=== PATIENT | female | born 1980 | race Caucasian/White ===

== ENCOUNTER 2016-11-27 11:59 | Day surgery (SDC) | payer OTHER ==
[~2016-11-27] VITALS: Ht 149.9 cm; Wt 65.5 kg
[~2016-11-27 11:59] MED LIST: ROCURONIUM 50 MG INJ ONE
[2016-11-27 12:22] VITALS: Ht 149.9 cm; Wt 65.5 kg
[2016-11-27] MEDS ORDERED: ACETAMINOPHEN 325 MG TAB PO STA (13:44)
--- NOTE | 2016-11-27 15:02 | RADRPT ---
PROCEDURE: OBSTETRICAL ULTRASOUND WITH ENDOVAGINAL IMAGES CLINICAL INDICATION: Vaginal bleeding, pelvic pain TECHNIQUE: Multiple sonographic images of the pelvis were obtained utilizing a transabdominal and endovaginal technique. The images were reviewed on a PACS workstation. COMPARISON: None. LMP: 09/28/2016 Gestational age by LMP: 8 weeks, 4 days FINDINGS: The uterus measures 8.3 x 4.6 x 7.8 cm. There is heterogeneity and thickening of the endometrium wh ich measures up to 16 mm. No abnormal vascularity is identified in the endometrium. Several sub-corazon timeter Nabothian cysts are identified. The right ovary is not visualized. The left ovary measures 2.8 x 2.0 x 2.0 cm. There is normal vascu lar flow in the left ovary. No significant ovarian lesions are seen. There is mild free fluid in the left adnexa. IMPRESSION: There is heterogeneity and thickening of the endometrium to 16 mm without evidence of an intrauterin e . Findings may be due to an early intrauterine although an ectopic and early demise cannot be entirely excluded. Short-term follow-up ultrasound and serial Bet a HCG measurements are recommended for further evaluation. No abnormal vascularity is identified in the endometrium to suggest retained products of conception . Mild free fluid is identified in the left adnexa without evidence of a significant left ovarian lesi on. Nonvisualization of the right ovary. RPTAT: EE Physician Jamila Date Time Electronically viewed and signed by Physician Jamila on 11/27/2016 15:02 /
[2016-11-27 15:17] LABS: ADD UMIC YES; UR ASCORBIC ACID NEGATIVE (NEGATIVE); UR BILIRUBIN (Dip) NEGATIVE (NEGATIVE); UR BLOOD (Dip) 2+ mg/dL (NEGATIVE); UR CLARITY SLIGHTLY CLOUDY (CLEAR); UR COLOR YELLOW (YELLOW); UR GLUCOSE (Dip) NEGATIVE (NEGATIVE); UR KETONES (Dip) NEGATIVE (NEGATIVE); UR LEUKOCYTE ESTERASE (Dip) NEGATIVE Leu/ul (NEGATIVE); UR MUCUS FEW /HPF (NONE SEEN); UR NITRITE (Dip) NEGATIVE (NEGATIVE); UR RBC 1 /HPF (0-5); UR SPECIFIC GRAVITY (Dip) 1.015 (1.003-1.030); UR SQUAMOUS EPITHELIAL CELL FEW /HPF (FEW); UR TOTAL PROTEIN (Dip) 1+ mg/dl (NEGATIVE); UR UROBILINOGEN (Dip) NEGATIVE (NEGATIVE)
[2016-11-27 15:36] LABS: BASOPHILS % 0.2 % (0.0-2.0); EOSINOPHILS % 0.3 % (0.0-7.0); HEMATOCRIT 37.2 % (42.0-52.0); HEMOGLOBIN 12.9 g/dl (14.0-18.0); LYMPHOCYTES # 1.3 10^3/ul (0.8-2.9); LYMPHOCYTES % 11.6 % (15.0-51.0); MEAN CORPUSCULAR HEMOGLOBIN 30.6 pg (29.0-33.0); MEAN CORPUSCULAR HGB CONC 34.7 g/dl (32.0-37.0); MEAN CORPUSCULAR VOLUME 88.2 fl (82.0-101.0); MONOCYTE # 0.5 10^3/ul (0.3-0.9); MONOCYTES % 3.9 % (0.0-11.0); NEUTROPHIL # 9.5 10^3/ul (1.6-7.5); NEUTROPHILS % 83.5 % (39.0-77.0); PLATELET COUNT 224 10^3/UL (140-415); RED BLOOD COUNT 4.22 10^6/ul (4.70-6.10); RED CELL DISTRIBUTION WIDTH 13.1 % (11.5-14.5); WHITE BLOOD COUNT 11.4 10^3/ul (4.8-10.8)
[2016-11-27 15:53] LABS: INR 0.96; PROTIME 12.8 Sec (12.2-14.2)
[2016-11-27 15:54] LABS: PARTIAL THROMBOPLASTIN TIME 23.8 Sec (25.0-35.0)
[2016-11-27 15:57] LABS: ALBUMIN 4.5 g/dl (3.3-4.9); ALBUMIN/GLOBULIN RATIO 1.32; BILIRUBIN,INDIRECT 0.6 mg/dl (0-1.1); BILIRUBIN,TOTAL 0.6 mg/dl (0.2-1.3); CALCIUM 9.3 mg/dl (8.4-10.2); CREATININE 0.61 mg/dl (0.61-1.24); POTASSIUM 4.3 mmol/L (3.5-5.1); TOTAL PROTEIN 7.9 g/dl (6.1-8.1)
[2016-11-27 16:46] VITALS: TEMP 98.5
[2016-11-27] MEDS ORDERED: ONDANSETRON (ODT) 4 MG TAB ODT STA (17:20)
[2016-11-27] MEDS ORDERED: HYDROCODONE/APAP (5/325) TAB PO ONE (17:30)
--- NOTE | 2016-11-27 18:22 | CONS ---
Date/Time of Note Date/Time of Note DATE: 11/27/16 TIME: 18:22 Assessment/Plan Assessment/Plan Chief Complaint/Hosp Course Abdominal pain HCG 14,239. No clear evidence of IUP and ultrasound Free fluid in the pelvis. Tenderness in adnexa Cannot rule out ectopic Discussed with the patient regarding the diagnosis of nonviable . Differential diagnosis would be incomplete miscarriage versus ectopic . Cannot rule out right ectopic after reviewing imaging as well as pelvic examination finding Currently patient hemodynamically stable Options of D&C and diagnostic laparoscopy if there is no villi found in D&C, with possible salpingostomy versus salpingectomy, possible open discussed with the patient Risk and benefit of procedure including risk of infection, bleeding damage to surrounding structures including bowel and bladder and risk of blood transfusion including but not limited to blood borne infection including HIV, hepatitis B and C and transfusion reaction discussed with the patient in detail and informed consent was obtained Patient desires to proceed with D&C and possible laparoscopy Understands possibility of conversion to open procedure Explained if ectopic tissue could not be identified and laparoscopy she may need to be observed in-house with treatment with methotrexate and serial HCG Patient understand follow-up after the procedure would be close monitoring of hCG if she has salpingostomy with her [facility] office as outpatient until hCG is negative. she verbalized understanding the risk of possibility of salpingectomy. Also understand risk of conversion to open procedure as well as risk of blood transfusion in case if necessary and she consents for blood transfusion as well. All questions were answered to the patient's best satisfaction We will keep the patient n.p.o. OR was notified Plan for above procedure at 10 PM per OR. Problems: Consultation Date/Type/Reason Admit Date/Time 11/27/2016 Type of Consultation: [facility] [facility] Reason for Consultation R/o Ectopic Hx of Present Illness 36 years old with amenorrhea for 8 weeks and 4 days presented to ED with complaint of epigastric pain with radiation to the lower abdomen and to the rectum area since this morning. Patient also reports dizziness and sweating. Had recently an exam for annual visit at her [facility] office, Dr. Kiko Haddad and had pap . was given an appt for first OB visit for Dec 02. Patient reports had a positive test in nov 09. Never had a ultrasound for confirmation of IUP. Patient had an ultrasound as well as blood work today in the emergency room that showed beta-hCG 14,239 and ultrasound with no evidence of IUP with mild free fluid in the left adnexa and normal left ovary with nonvisualization of the right ovary. Patient denies any vaginal bleeding. LMP September 28, 2016. Had been trying for since April. Denies any prior history of infertility. Had been using condoms for control. Constitutional: other (Reports significant abdominal pain as well as dizziness and sweating) Eyes: no complaints ENT: no complaints Respiratory: no complaints Cardiovascular: no complaints Gastrointestinal: nausea, pain Musculoskeletal: no complaints Skin: no complaints Neurologic: no complaints Endocrine: no complaints Lymphatic: no complaints Psychological: no complaints Immunologic: no complaints Past Medical History Past medical history: 1. Hypercholesterolemia 2. Hypothyroidism, on Synthroid well-controlled 3. History of pituitary adenoma, nose and MRI after she had 4 headache. Denies any galactorrhea Past surgical history: 1. Status post appendectomy in 1999 [employer] history LMP September 28, 2016 Cycles had been fairly regular once a month last about 3 days. She also reports dysmenorrhea and rectal pain during menstruation Family History Significant Family History: hypertension (Maternal grandmother of hypertension, hypertension in mother and father) Social History Denies smoking. Used to drink alcohol socially. Stopped 2 years ago. Denies ever using any drugs Alcohol Use: none Exam/Review of Systems Vital Signs Vitals Vital Signs Date Time Temp Pulse Resp B/P Pulse Ox O2 Delivery O2 Flow Rate FiO2 11/27/16 16:46 98.5 78 20 112/58 99 Room Air Exam Constitutional: alert, distress, oriented, other (Is in moderate distress) Psych: no complaints Head: normocephalic Eyes: nl conjunctiva ENMT: nl external ears & nose Neck: supple Respiratory: clear to auscultation Cardiovascular: nl pulses, regular rate and rhythm Gastrointestinal: other (Guarding in both lower abdomen more in the right side. 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 No vaginal lesion no blood in the vault Bimanual examination. Fullness and tenderness in cul-de-sac as well as right lower abdomen and the right adnexa Left adnexa less tender in the palpation Exam is limited due to patient's difficulty tolerating pelvic examination due to discomfort and pain Results Result Diagram: 11/27/16 1525 11/27/16 1525 Results 24 hrs Laboratory Tests Test 11/27/16 14:50 11/27/16 15:25 Urine Color YELLOW Urine Clarity SLIGHTLY CLOUDY A Urine pH 7.0 Urine Specific [place] 1.015 Urine Ketones NEGATIVE Urine Nitrite NEGATIVE Urine Bilirubin NEGATIVE Urine Urobilinogen NEGATIVE Urine Leukocyte Esterase NEGATIVE Urine Microscopic RBC 1 Urine Microscopic WBC 5 Urine Squamous Epithelial Cells FEW Urine Mucus FEW A Urine Hemoglobin 2+ H Urine Glucose NEGATIVE Urine Total Protein 1+ H White Blood Count 11.4 H Red Blood Count 4.22 L Hemoglobin 12.9 L Hematocrit 37.2 L Mean Corpuscular Volume 88.2 Mean Corpuscular Hemoglobin 30.6 Mean Corpuscular Hemoglobin Concent 34.7 Red Cell Distribution Width 13.1 Platelet Count 224 Mean Platelet Volume 11.0 H Neutrophils % 83.5 H Lymphocytes % 11.6 L Monocytes % 3.9 Eosinophils % 0.3 Basophils % 0.2 Nucleated Red Blood Cells % 0.0 Neutrophils # 9.5 H Lymphocytes # 1.3 Monocytes # 0.5 Eosinophils # 0.0 Basophils # 0.0 Nucleated Red Blood Cells # 0.0 Prothrombin Time 12.8 Prothrombin Time Ratio 1.0 INR International Normalized Ratio 0.96 Activated Partial Thromboplast Time 23.8 L Sodium Level 140 Potassium Level 4.3 Chloride Level 106 Carbon Dioxide Level 23 Anion Gap 15 Blood Urea Nitrogen 11 Creatinine 0.61 Glucose Level 102 Calcium Level 9.3 Total Bilirubin 0.6 Direct Bilirubin 0.00 Indirect Bilirubin 0.6 Aspartate Amino Transf (AST/SGOT) 25 Alanine Aminotransferase (ALT/SGPT) 42 Alkaline Phosphatase 82 Total Protein 7.9 Albumin 4.5 Globulin 3.40 H Albumin/Globulin Ratio 1.32 Beta HCG, Quantitative 81179.0 Imaging Free Text/Dictation ROCEDURE: OBSTETRICAL ULTRASOUND WITH ENDOVAGINAL IMAGES CLINICAL INDICATION: Vaginal bleeding, pelvic pain TECHNIQUE: Multiple sonographic images of the pelvis were obtained utilizing a transabdominal and endovaginal technique. The images were reviewed on a PACS workstation. COMPARISON: None. LMP: 09/28/2016 Gestational age by LMP: 8 weeks, 4 days FINDINGS: The uterus measures 8.3 x 4.6 x 7.8 cm. There is heterogeneity and thickening of the endometrium which measures up to 16 mm. No abnormal vascularity is identified in the endometrium. Several sub-centimeter Nabothian cysts are identified. The right ovary is not visualized. The left ovary measures 2.8 x 2.0 x 2.0 cm. There is normal vascular flow in the left ovary. No significant ovarian lesions are seen. There is mild free fluid in the left adnexa. IMPRESSION: There is heterogeneity and thickening of the endometrium to 16 mm without evidence of an intrauterine . Findings may be due to an early intrauterine although an ectopic and early demise cannot be entirely excluded. Short-term follow-up ultrasound and serial Beta HCG measurements are recommended for further evaluation. No abnormal vascularity is identified in the endometrium to suggest retained products of conception. Mild free fluid is identified in the left adnexa without evidence of a significant left ovarian lesion. Nonvisualization of the right ovary. RPTAT: EE Medications Medications Current Medications Lactated Ringer's 1,000 ml @ 125 mls/hr Q8H IV ; Start 11/27/16 at 18:16; Status UNV Cefazolin Sodium/ Dextrose (Ancef 2 Gm/50 ml (Pmx)) 50 ml @ 100 mls/hr PRE-OP ONCE IVPB ; Start 11/27/16 at 18:30; Stop 11/27/16 at 18:59; Status UNV GEM HERRON MD Nov 27, 2016 18:22
[2016-11-27] MEDS ORDERED: CEFAZOLIN 2 GM/50 ML (PMX) 50 ML IVPB ONE (18:30)
--- NOTE | 2016-11-27 19:00 | HP ---
Date/Time of Note Date/Time of Note DATE: 11/27/16 TIME: 18:59 Assessment/Plan VTE Prophylaxis VTE Prophylaxis Intervention: ambulation, SCD's Assessment/Plan Chief Complaint/Hosp Course Abdominal pain HCG 14,239. No clear evidence of IUP and ultrasound Free fluid in the pelvis. Tenderness in adnexa Cannot rule out ectopic Discussed with the patient regarding the diagnosis of nonviable . Differential diagnosis would be incomplete miscarriage versus ectopic . Cannot rule out right ectopic after reviewing imaging as well as pelvic examination finding Currently patient hemodynamically stable Options of D&C and diagnostic laparoscopy if there is no villi found in D&C, with possible salpingostomy versus salpingectomy, possible open discussed with the patient Risk and benefit of procedure including risk of infection, bleeding damage to surrounding structures including bowel and bladder and risk of blood transfusion including but not limited to blood borne infection including HIV, hepatitis B and C and transfusion reaction discussed with the patient in detail and informed consent was obtained Patient desires to proceed with D&C and possible laparoscopy Understands possibility of conversion to open procedure Explained if ectopic tissue could not be identified and laparoscopy she may need to be observed in-house with treatment with methotrexate and serial HCG Patient understand follow-up after the procedure would be close monitoring of hCG if she has salpingostomy with her [facility]CH[facility] office as outpatient until hCG is negative. she verbalized understanding the risk of possibility of salpingectomy. Also understand risk of conversion to open procedure as well as risk of blood transfusion in case if necessary and she consents for blood transfusion as well. All questions were answered to the patient's best satisfaction We will keep the patient n.p.o. OR was notified Plan for above procedure at 10 PM per OR. Problems: HPI/ROS Admit Date/Time Admit Date/Time 11/27/2016 Hx of Present Illness Patient Name: Remedios Goss Unit Number: [id number] Date of : 1980 Patient Status: Registered Emergency Room Attending Doctor: Yohana Avery Date/Time of Note Date/Time of Note Date/Time of Note DATE: 11/27/16 TIME: 18:22 Assessment/Plan Assessment/Plan Assessment/Plan Chief Complaint/Hosp Course Abdominal pain HCG 14,239. No clear evidence of IUP and ultrasound Free fluid in the pelvis. Tenderness in adnexa Cannot rule out ectopic Discussed with the patient regarding the diagnosis of nonviable . Differential diagnosis would be incomplete miscarriage versus ectopic . Cannot rule out right ectopic after reviewing imaging as well as pelvic examination finding Currently patient hemodynamically stable Options of D&C and diagnostic laparoscopy if there is no villi found in D&C, with possible salpingostomy versus salpingectomy, possible open discussed with the patient Risk and benefit of procedure including risk of infection, bleeding damage to surrounding structures including bowel and bladder and risk of blood transfusion including but not limited to blood borne infection including HIV, hepatitis B and C and transfusion reaction discussed with the patient in detail and informed consent was obtained Patient desires to proceed with D&C and possible laparoscopy Understands possibility of conversion to open procedure Explained if ectopic tissue could not be identified and laparoscopy she may need to be observed in-house with treatment with methotrexate and serial HCG Patient understand follow-up after the procedure would be close monitoring of hCG if she has salpingostomy with her [facility] office as outpatient until hCG is negative. she verbalized understanding the risk of possibility of salpingectomy. Also understand risk of conversion to open procedure as well as risk of blood transfusion in case if necessary and she consents for blood transfusion as well. All questions were answered to the patient's best satisfaction We will keep the patient n.p.o. OR was notified Plan for above procedure at 10 PM per OR. Problems: Initial Consultation HPI Consultation Date/Type/Reason Admit Date/Time 11/27/2016 Type of Consultation: [facility] [employer] Reason for Consultation R/o Ectopic Hx of Present Illness 36 years old with amenorrhea for 8 weeks and 4 days presented to ED with complaint of epigastric pain with radiation to the lower abdomen and to the rectum area since this morning. Patient also reports dizziness and sweating. Had recently an exam for annual visit at her [facility] office, Dr. Kiko Haddad and had pap . was given an appt for first OB visit for Dec 02. Patient reports had a positive test in nov 09. Never had a ultrasound for confirmation of IUP. Patient had an ultrasound as well as blood work today in the emergency room that showed beta-hCG 14,239 and ultrasound with no evidence of IUP with mild free fluid in the left adnexa and normal left ovary with nonvisualization of the right ovary. Patient denies any vaginal bleeding. LMP September 28, 2016. Had been trying for since April. Denies any prior history of infertility. Had been using condoms for control. Constitutional: other (Reports significant abdominal pain as well as dizziness and sweating) Eyes: no complaints ENT: no complaints Respiratory: no complaints Cardiovascular: no complaints Gastrointestinal: nausea, pain Musculoskeletal: no complaints Skin: no complaints Neurologic: no complaints Endocrine: no complaints Lymphatic: no complaints Psychological: no complaints Immunologic: no complaints Initial Consultation Hx Past Medical History Past medical history: 1. Hypercholesterolemia 2. Hypothyroidism, on Synthroid well-controlled 3. History of pituitary adenoma, nose and MRI after she had 4 headache. Denies any galactorrhea Past surgical history: 1. Status post appendectomy in 1999 [employer] history LMP September 28, 2016 Cycles had been fairly regular once a month last about 3 days. She also reports dysmenorrhea and rectal pain during menstruation Family History Significant Family History: hypertension (Maternal grandmother of hypertension, hypertension in mother and father) Social History Denies smoking. Used to drink alcohol socially. Stopped 2 years ago. Denies ever using any drugs Alcohol Use: none Exam/Review of Systems Exam/Review of Systems Vital Signs Vitals Vital Signs Date Time Temp Pulse Resp B/P Pulse Ox O2 Delivery O2 Flow Rate FiO2 11/27/16 16:46 98.5 78 20 112/58 99 Room Air Exam Constitutional: alert, distress, oriented, other (Is in moderate distress) Psych: no complaints Head: normocephalic Eyes: nl conjunctiva ENMT: nl external ears & nose Neck: supple Respiratory: clear to auscultation Cardiovascular: nl pulses, regular rate and rhythm Gastrointestinal: other (Guarding in both lower abdomen more in the right side. 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 No vaginal lesion no blood in the vault Bimanual examination. Fullness and tenderness in cul-de-sac as well as right lower abdomen and the right adnexa Left adnexa less tender in the palpation Exam is limited due to patient's difficulty tolerating pelvic examination due to discomfort and pain Results Result Diagram: 11/27/16 1525 11/27/16 1525 Results 24 hrs Laboratory Tests Test 11/27/16 14:50 11/27/16 15:25 Urine Color YELLOW Urine Clarity SLIGHTLY CLOUDY A Urine pH 7.0 Urine Specific [place] 1.015 Urine Ketones NEGATIVE Urine Nitrite NEGATIVE Urine Bilirubin NEGATIVE Urine Urobilinogen NEGATIVE Urine Leukocyte Esterase NEGATIVE Urine Microscopic RBC 1 Urine Microscopic WBC 5 Urine Squamous Epithelial Cells FEW Urine Mucus FEW A Urine Hemoglobin 2+ H Urine Glucose NEGATIVE Urine Total Protein 1+ H White Blood Count 11.4 H Red Blood Count 4.22 L Hemoglobin 12.9 L Hematocrit 37.2 L Mean Corpuscular Volume 88.2 Mean Corpuscular Hemoglobin 30.6 Mean Corpuscular Hemoglobin Concent 34.7 Red Cell Distribution Width 13.1 Platelet Count 224 Mean Platelet Volume 11.0 H Neutrophils % 83.5 H Lymphocytes % 11.6 L Monocytes % 3.9 Eosinophils % 0.3 Basophils % 0.2 Nucleated Red Blood Cells % 0.0 Neutrophils # 9.5 H Lymphocytes # 1.3 Monocytes # 0.5 Eosinophils # 0.0 Basophils # 0.0 Nucleated Red Blood Cells # 0.0 Prothrombin Time 12.8 Prothrombin Time Ratio 1.0 INR International Normalized Ratio 0.96 Activated Partial Thromboplast Time 23.8 L Sodium Level 140 Potassium Level 4.3 Chloride Level 106 Carbon Dioxide Level 23 Anion Gap 15 Blood Urea Nitrogen 11 Creatinine 0.61 Glucose Level 102 Calcium Level 9.3 Total Bilirubin 0.6 Direct Bilirubin 0.00 Indirect Bilirubin 0.6 Aspartate Amino Transf (AST/SGOT) 25 Alanine Aminotransferase (ALT/SGPT) 42 Alkaline Phosphatase 82 Total Protein 7.9 Albumin 4.5 Globulin 3.40 H Albumin/Globulin Ratio 1.32 Beta HCG, Quantitative 58463.0 Imaging Free Text/Dictation ROCEDURE: OBSTETRICAL ULTRASOUND WITH ENDOVAGINAL IMAGES CLINICAL INDICATION: Vaginal bleeding, pelvic pain TECHNIQUE: Multiple sonographic images of the pelvis were obtained utilizing a transabdominal and endovaginal technique. The images were reviewed on a PACS workstation. COMPARISON: None. LMP: 09/28/2016 Gestational age by LMP: 8 weeks, 4 days FINDINGS: The uterus measures 8.3 x 4.6 x 7.8 cm. There is heterogeneity and thickening of the endometrium which measures up to 16 mm. No abnormal vascularity is identified in the endometrium. Several sub-centimeter Nabothian cysts are identified. The right ovary is not visualized. The left ovary measures 2.8 x 2.0 x 2.0 cm. There is normal vascular flow in the left ovary. No significant ovarian lesions are seen. There is mild free fluid in the left adnexa. IMPRESSION: There is heterogeneity and thickening of the endometrium to 16 mm without evidence of an intrauterine . Findings may be due to an early intrauterine although an ectopic and early demise cannot be entirely excluded. Short-term follow-up ultrasound and serial Beta HCG measurements are recommended for further evaluation. No abnormal vascularity is identified in the endometrium to suggest retained products of conception. Mild free fluid is identified in the left adnexa without evidence of a significant left ovarian lesion. Nonvisualization of the right ovary. RPTAT: EE Medications Medications Current Medications Lactated Ringer's 1,000 ml @ 125 mls/hr Q8H IV ; Start 11/27/16 at 18:16; Status UNV Cefazolin Sodium/ Dextrose (Ancef 2 Gm/50 ml (Pmx)) 50 ml @ 100 mls/hr PRE-OP ONCE IVPB ; Start 11/27/16 at 18:30; Stop 11/27/16 at 18:59; Status UNV Copies To: Copies To: GEM HERRON MD Nov 27, 2016 18:22 ROS Eyes: no complaints ENT: no complaints Respiratory: no complaints Cardiovascular: no complaints Gastrointestinal: nausea, pain Musculoskeletal: no complaints Skin: no complaints Neurologic: no complaints Lymphatic: no complaints Psychological: no complaints Immunologic: no complaints PMH/Family/Social Social History Alcohol Use: none Exam/Review of Systems Vital Signs Vitals Vital Signs Date Time Temp Pulse Resp B/P Pulse Ox O2 Delivery O2 Flow Rate FiO2 11/27/16 16:46 98.5 78 20 112/58 99 Room Air Labs Result Diagram: 11/27/16 1525 11/27/16 1525 Medications Medications Current Medications Lactated Ringer's 1,000 ml @ 125 mls/hr Q8H IV ; Start 11/27/16 at 18:16 Cefazolin Sodium/ Dextrose (Ancef 2 Gm/50 ml (Pmx)) 50 ml @ 100 mls/hr PRE-OP ONCE IVPB ; Start 11/27/16 at 18:30; Stop 11/27/16 at 18:59 GEM HERRON MD Nov 27, 2016 19:00
[2016-11-27] MEDS: LACTATED RINGER'S 1,000 ML IV SCH (19:04)
[2016-11-27] MEDS ORDERED: VASOPRESSIN 20 UNITS INJ ONE (20:15)
[2016-11-27] MEDS ORDERED: MIDAZOLAM 1 MG/ML 2 ML INJ ONE (21:59)
[2016-11-27] MEDS ORDERED: LIDOCAINE 1% (MDV) 20 ML INJ ONE (21:59)
[2016-11-27] MEDS ORDERED: SUCCINYLCHOLINE CHLORIDE 100 MG/5 ML SYG IV ONE (21:59)
[2016-11-27] MEDS ORDERED: PROPOFOL 20 ML ONE (21:59)
[2016-11-27] MEDS ORDERED: CEFAZOLIN 1 GM INJ ONE (22:16)
[2016-11-27] MEDS ORDERED: FAMOTIDINE 20 MG INJ ONE (22:22)
[2016-11-27] MEDS ORDERED: ONDANSETRON 4 MG INJ ONE (22:22)
[2016-11-27] MEDS ORDERED: DEXAMETHASONE 4 MG/ML 1 ML INJ ONE (22:22)
[2016-11-27] MEDS ORDERED: BUPIVACAINE 0.25% (MPF) 30 ML INJ ONE (22:38)
[2016-11-27] MEDS ORDERED: PHENYLephrine (100 MCG/ML) 5ML SYG ONE (22:42)
[2016-11-27] MEDS ORDERED: ROPIVACAINE 0.2% 20 ML VIAL ONE (23:44)
[2016-11-27] MEDS ORDERED: SUGAMMADEX SODIUM 200 MG/2 ML VIAL IV ONE (23:57)
[2016-11-28] VITALS (23 sets, daily range): BP systolic 93–120; BP diastolic 44–67; PULSE 86–105; RESP 14–30
[2016-11-28] MEDS ORDERED: PHENYLephrine (100 MCG/ML) 5ML SYG ONE (00:01)
[2016-11-28] MEDS ORDERED: MEPERIDINE 25 MG INJ ONE (00:19)
[2016-11-28] MEDS ORDERED: ONDANSETRON 4 MG INJ ONE (00:20)
--- NOTE | 2016-11-28 00:27 | OPR ---
Date/Time of Note Date/Time of Note DATE: 11/28/16 TIME: 00:12 Operative Report Procedure Date: Nov 27, 2016 Preoperative Diagnosis 1-. Ectopic Postoperative Diagnosis Right ruptured tubal Hemoperitoneum Operation Performed 1. Dilatation and curettage 2. Diagnostic laparoscopy 3. Laparoscopic right salpingectomy 4. Drainage of intraperitoneal blood and blood clot Surgeon see signature line Clinical Trials Data Coordinator: GEM HERRON MD mechanic's assistant: WEN SOSA M.D. Anesthesia Type: general Anesthesiologist: ALEX GARDINER DO Tourniquet Time: 40 Transfusion Required: no Specimens Right tube Grafts/Implants: none Complications: no Pt Condition Post Procedure: stable Disposition: PACU Indications Abdominal pain Ectopic Suspicion for aborting versus ruptured ectopic Operative\Procedure Findings Right ruptured ectopic Hameoperitoneum 500 cc, Procedure Description Ms. Remedios Goss is a 36-year-old who presented to emergency room with complaint of severe abdominal pain that required IV narcotic pain medication with a new episode of . Unknown location. She had amenorrhea for 8+ weeks. Never had confirmed IUP. Was noted to have empty uterus with some mild amount of free fluid in the pelvis In pelvic formal ultrasound her serum hCG was 14,000. patient was counseled regarding different options to rule out ectopic including diagnostic laparoscopy versus D&C first then proceeding with diagnostic and operative laparoscopy in case of non-identification of chorionic villi from the uterine cavity. She opted to proceed with D&C first and proceed with diagnostic laparoscopy if no villi vitals found in frozen section. After discussion with the patient about the risk and benefit of procedure including, risk of infection, bleeding, damage to adjacent structures including bowel and bladder and risk of blood transfusion including but not limited to blood borne infection including HIV, hepatitis B and C and transfusion reaction and risk of conversion to open procedure informed consent was obtained. Patient was then taken to the operating room and received a dose of Ancef. She was placed under general adequate anesthesia. Timeout procedure was completed and patient was identified correctly. Then first after prep and drape a weighted speculum was placed inside the vagina. Anterior lip of the cervix was grasped using tenaculum. Cervix was serially dilated using Hegar dilators until we could accommodate passage of sharp grade #3. Depth of the uterus was measured using a uterine sound was noted to be 9 cm. Then using sharp curette the entire uterine cavity and 360 was curette. Minimal amount of tissue obtained and was sent to frozen section. Intra-Op frozen section showed evidence of decidual without any evidence of chorionic villi. At this point first a HUMI manipulator was passed into the uterine cavity and its balloon was inflated enough to fix the manipulator. Then the tenaculum from anterior lip of the cervix was removed. Due to high level hCG and no IUP and high suspicious for ectopic decision was made to proceed with diagnostic laparoscopy. At this point after changing of gloves attention was turned to the abdomen where after injecting of 6 cc of quarter percent Marcaine and umbilicus first and 5 mm incision was made inside the umbilicus. Then using Veress needle was passed through them umbilicus incision after 2 snaps sounds and positive saline drop test and negative aspiration that confirmed correct intra-abdominal placement of the Veress needle insufflation started using CO2 gas. Opening pressure was noted to be 0. After insufflation of 3.2 L of CO2 gas and adequate distention of the abdomen while the patient was in the supine position using a 5 mm trocar from the umbilical incision that was passed through the incision to the abdominal cavity under direct visualization with MessageMe intra-abdominal cavity entered without any complication. Pelvis was evaluated. There was tracked up to the about 4500 cc of blood as well as blood clots into the pelvis. The blood was tracked to under liver edge. Then first and left lower quadrant trocar after negative transillumination test and under direct visualization was passed through the 5 mm skin incision into the abdominal cavity under direct visualization. Procedure proceeded in a similar fashion in the right side where after negative transillumination test under direct visualization 5 mm trocar in the right side as well was passed into the abdominal cavity. Then the procedure proceeded by suctioning of large amount of fluid and blood clot that was present into the pelvis. Due to large amount of organized blood clot and decision was made to use the largest suction. At this point the left lower quadrant port size was changed to 12 mm incision and the 5 mm trocar was replaced by 12 mm blunt trocar. Then suctioning of the abdomen and pelvis with irrigation of the pelvis and upper abdomen performed. Then attention was turned to the uterus. Uterus was noted to be normal size. Left tube and ovary was normal. Right tube was ruptured at the corneal is small at junction of the tube. Right ovary was noted to be normal. No other pathology was noted. Then at this point decision was made to proceed with salpingectomy in the right side. The ruptured tube present. Using gyrus the entire right tube from the fimbria to the cornea of the uterus was removed by serially clamped click and coagulation of the mesosalpinx along the border of the right tube. Then the resected right tube was grasped and placed into the Endobag that was passed through the 12 mm trocar site. It was removed from 12 mm trocar site and was sent the specimen to pathology. Then the 12 mm trocar site was repaired with a single Vicryl 1 suture using Randy-Pippa device after assurance about the hemostasis of the operative site and the uterus and adequate suction and irrigation of the entire abdomen and pelvis. After assurance about the hemostasis and negative pressure check of the operative site then the trochars in all 3 sites were removed and gas was desufflated from the abdomen while the patient was in the deep Trendelenburg position and anesthesia was applying 5 deep breath. After adequate desufflation then the skin in all 3 laparoscopic port site was reapproximated using 3-0 Monocryl and Dermabond was applied over the laparoscope incision sites. Then attention was turned to the vagina where after desufflation of the HUMI manipulator was removed from the uterine cavity. Hemostasis of the cervical lip and vagina was reassured. EBL for the procedure was 40 cc. The amount of blood that was inside the abdomen and pelvis was about 4-500 cc including blood clot. Patient tolerated the procedure well. Sponge lap and needle counts were correct 2 and patient was transferred to recovery room in stable condition of note that Simmons catheter was draining clear yellow urine during the whole procedure. GEM HERRON MD Nov 28, 2016 00:27
[2016-11-28] MEDS ORDERED: HYDROCODONE/APAP (5/325) TAB PO PRN (00:30)
[2016-11-28] MEDS ORDERED: MEPERIDINE 25 MG INJ IV PRN (00:30)
[2016-11-28] MEDS ORDERED: morphine 2 MG INJ IV PRN (00:30)
[2016-11-28] MEDS ORDERED: DIPHENHYDRAMINE 50 MG INJ IV PRN (00:30)
[2016-11-28] MEDS ORDERED: HYDROmorphONE (0.2 MG/ML) 10ML SYG IV PRN (00:30)
[2016-11-28] MEDS ORDERED: ONDANSETRON 4 MG INJ IV PRN (00:30)
[2016-11-28] MEDS: HYDROmorphONE (0.2 MG/ML) 10ML SYG IV PRN ×2 (00:38→00:51)
--- NOTE | 2016-11-28 01:00 | PD.PPDC ---
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
--- NOTE | 2016-11-28 01:03 | DS ---
Date/Time of Note Date/Time of Note DATE: 11/28/16 TIME: 01:02 Discharge Summary Admission/Discharge Info Admit Date/Time 11/27/2016 Discharge Date/Time 11/28/2016 Patient Condition: Good Consults [employer] SERVICE TECHNICIAN Hx of Present Illness Patient Name: Remedios Goss Unit Number: [id number] Date of : 1980 Patient Status: Registered Emergency Room Attending Doctor: Yohana Avery Date/Time of Note Date/Time of Note Date/Time of Note DATE: 11/27/16 TIME: 18:22 Assessment/Plan Assessment/Plan Assessment/Plan Chief Complaint/Hosp Course Abdominal pain HCG 14,239. No clear evidence of IUP and ultrasound Free fluid in the pelvis. Tenderness in adnexa Cannot rule out ectopic Discussed with the patient regarding the diagnosis of nonviable . Differential diagnosis would be incomplete miscarriage versus ectopic . Cannot rule out right ectopic after reviewing imaging as well as pelvic examination finding Currently patient hemodynamically stable Options of D&C and diagnostic laparoscopy if there is no villi found in D&C, with possible salpingostomy versus salpingectomy, possible open discussed with the patient Risk and benefit of procedure including risk of infection, bleeding damage to surrounding structures including bowel and bladder and risk of blood transfusion including but not limited to blood borne infection including HIV, hepatitis B and C and transfusion reaction discussed with the patient in detail and informed consent was obtained Patient desires to proceed with D&C and possible laparoscopy Understands possibility of conversion to open procedure Explained if ectopic tissue could not be identified and laparoscopy she may need to be observed in-house with treatment with methotrexate and serial HCG Patient understand follow-up after the procedure would be close monitoring of hCG if she has salpingostomy with her [employer] TECHNICIAN office as outpatient until hCG is negative. she verbalized understanding the risk of possibility of salpingectomy. Also understand risk of conversion to open procedure as well as risk of blood transfusion in case if necessary and she consents for blood transfusion as well. All questions were answered to the patient's best satisfaction We will keep the patient n.p.o. OR was notified Plan for above procedure at 10 PM per OR. Problems: Initial Consultation HPI Consultation Date/Type/Reason Admit Date/Time 11/27/2016 Type of Consultation: [employer] FI[employer] SERVICE TECHNICIAN Reason for Consultation R/o Ectopic Hx of Present Illness 36 years old with amenorrhea for 8 weeks and 4 days presented to ED with complaint of epigastric pain with radiation to the lower abdomen and to the rectum area since this morning. Patient also reports dizziness and sweating. Had recently an exam for annual visit at her [employer] FI[employer] SERVICE TECHNICIAN office, Dr. Kiko Haddad and had pap . was given an appt for first OB visit for Dec 02. Patient reports had a positive test in nov 09. Never had a ultrasound for confirmation of IUP. Patient had an ultrasound as well as blood work today in the emergency room that showed beta-hCG 14,239 and ultrasound with no evidence of IUP with mild free fluid in the left adnexa and normal left ovary with nonvisualization of the right ovary. Patient denies any vaginal bleeding. LMP September 28, 2016. Had been trying for since April. Denies any prior history of infertility. Had been using condoms for control. Constitutional: other (Reports significant abdominal pain as well as dizziness and sweating) Eyes: no complaints ENT: no complaints Respiratory: no complaints Cardiovascular: no complaints Gastrointestinal: nausea, pain Musculoskeletal: no complaints Skin: no complaints Neurologic: no complaints Endocrine: no complaints Lymphatic: no complaints Psychological: no complaints Immunologic: no complaints Initial Consultation Hx Past Medical History Past medical history: 1. Hypercholesterolemia 2. Hypothyroidism, on Synthroid well-controlled 3. History of pituitary adenoma, nose and MRI after she had 4 headache. Denies any galactorrhea Past surgical history: 1. 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 She also reports dysmenorrhea and rectal pain during menstruation Family History Significant Family History: hypertension (Maternal grandmother of hypertension, hypertension in mother and father) Social History Denies smoking. Used to drink alcohol socially. Stopped 2 years ago. Denies ever using any drugs Alcohol Use: none Exam/Review of Systems Exam/Review of Systems Vital Signs Vitals Vital Signs Date Time Temp Pulse Resp B/P Pulse Ox O2 Delivery O2 Flow Rate FiO2 11/27/16 16:46 98.5 78 20 112/58 99 Room Air Exam Constitutional: alert, distress, oriented, other (Is in moderate distress) Psych: no complaints Head: normocephalic Eyes: nl conjunctiva ENMT: nl external ears & nose Neck: supple Respiratory: clear to auscultation Cardiovascular: nl pulses, regular rate and rhythm Gastrointestinal: other (Guarding in both lower abdomen more in the right side. Tenderness and rebound tenderness in the right lower abdomen as well as some rebound tenderness in left lower abdomen), tender Extremities: normal pulses Neurological: C PYTHON DEVELOPER II-XII intact, nl mental status, nl speech, nl strength Skin: nl turgor Lymph: nl lymph nodes Additional Comments Pelvic examination: External genitalia within normal limits Speculum examination: Cervix normal appearance. No vaginal lesion no blood in the vault Bimanual examination. Fullness and tenderness in cul-de-sac as well as right lower abdomen and the right adnexa Left adnexa less tender in the palpation Exam is limited due to patient's difficulty tolerating pelvic examination due to discomfort and pain Results Result Diagram: 11/27/16 1525 11/27/16 1525 Results 24 hrs Laboratory Tests Test 11/27/16 14:50 11/27/16 15:25 Urine Color YELLOW Urine Clarity SLIGHTLY CLOUDY A Urine pH 7.0 Urine Specific Gibbon 1.015 Urine Ketones NEGATIVE Urine Nitrite NEGATIVE Urine Bilirubin NEGATIVE Urine Urobilinogen NEGATIVE Urine Leukocyte Esterase NEGATIVE Urine Microscopic RBC 1 Urine Microscopic WBC 5 Urine Squamous Epithelial Cells FEW Urine Mucus FEW A Urine Hemoglobin 2+ H Urine Glucose NEGATIVE Urine Total Protein 1+ H White Blood Count 11.4 H Red Blood Count 4.22 L Hemoglobin 12.9 L Hematocrit 37.2 L Mean Corpuscular Volume 88.2 Mean Corpuscular Hemoglobin 30.6 Mean Corpuscular Hemoglobin Concent 34.7 Red Cell Distribution Width 13.1 Platelet Count 224 Mean Platelet Volume 11.0 H Neutrophils % 83.5 H Lymphocytes % 11.6 L Monocytes % 3.9 Eosinophils % 0.3 Basophils % 0.2 Nucleated Red Blood Cells % 0.0 Neutrophils # 9.5 H Lymphocytes # 1.3 Monocytes # 0.5 Eosinophils # 0.0 Basophils # 0.0 Nucleated Red Blood Cells # 0.0 Prothrombin Time 12.8 Prothrombin Time Ratio 1.0 INR International Normalized Ratio 0.96 Activated Partial Thromboplast Time 23.8 L Sodium Level 140 Potassium Level 4.3 Chloride Level 106 Carbon Dioxide Level 23 Anion Gap 15 Blood Urea Nitrogen 11 Creatinine 0.61 Glucose Level 102 Calcium Level 9.3 Total Bilirubin 0.6 Direct Bilirubin 0.00 Indirect Bilirubin 0.6 Aspartate Amino Transf (AST/SGOT) 25 Alanine Aminotransferase (ALT/SGPT) 42 Alkaline Phosphatase 82 Total Protein 7.9 Albumin 4.5 Globulin 3.40 H Albumin/Globulin Ratio 1.32 Beta HCG, Quantitative 79256.0 Imaging Free Text/Dictation ROCEDURE: OBSTETRICAL ULTRASOUND WITH ENDOVAGINAL IMAGES CLINICAL INDICATION: Vaginal bleeding, pelvic pain TECHNIQUE: Multiple sonographic images of the pelvis were obtained utilizing a transabdominal and endovaginal technique. The images were reviewed on a PACS workstation. COMPARISON: None. LMP: 09/28/2016 Gestational age by LMP: 8 weeks, 4 days FINDINGS: The uterus measures 8.3 x 4.6 x 7.8 cm. There is heterogeneity and thickening of the endometrium which measures up to 16 mm. No abnormal vascularity is identified in the endometrium. Several sub-centimeter Nabothian cysts are identified. The right ovary is not visualized. The left ovary measures 2.8 x 2.0 x 2.0 cm. There is normal vascular flow in the left ovary. No significant ovarian lesions are seen. There is mild free fluid in the left adnexa. IMPRESSION: There is heterogeneity and thickening of the endometrium to 16 mm without evidence of an intrauterine . Findings may be due to an early intrauterine although an ectopic and early demise cannot be entirely excluded. Short-term follow-up ultrasound and serial Beta HCG measurements are recommended for further evaluation. No abnormal vascularity is identified in the endometrium to suggest retained products of conception. Mild free fluid is identified in the left adnexa without evidence of a significant left ovarian lesion. Nonvisualization of the right ovary. RPTAT: EE Medications Medications Current Medications Lactated Ringer's 1,000 ml @ 125 mls/hr Q8H IV ; Start 11/27/16 at 18:16; Status UNV Cefazolin Sodium/ Dextrose (Ancef 2 Gm/50 ml (Pmx)) 50 ml @ 100 mls/hr PRE-OP ONCE IVPB ; Start 11/27/16 at 18:30; Stop 11/27/16 at 18:59; Status UNV Copies To: Copies To: GEM HERRON MD Nov 27, 2016 18:22 Hospital Course Abdominal pain HCG 14,239. No clear evidence of IUP and ultrasound Free fluid in the pelvis. Tenderness in adnexa Cannot rule out ectopic Discussed with the patient regarding the diagnosis of nonviable . Differential diagnosis would be incomplete miscarriage versus ectopic . Cannot rule out right ectopic after reviewing imaging as well as pelvic examination finding Currently patient hemodynamically stable Options of D&C and diagnostic laparoscopy if there is no villi found in D&C, with possible salpingostomy versus salpingectomy, possible open discussed with the patient Risk and benefit of procedure including risk of infection, bleeding damage to surrounding structures including bowel and bladder and risk of blood transfusion including but not limited to blood borne infection including HIV, hepatitis B and C and transfusion reaction discussed with the patient in detail and informed consent was obtained Patient desires to proceed with D&C and possible laparoscopy Understands possibility of conversion to open procedure Explained if ectopic tissue could not be identified and laparoscopy she may need to be observed in-house with treatment with methotrexate and serial HCG Patient understand follow-up after the procedure would be close monitoring of hCG if she has salpingostomy with her [employer] TECHNICIAN office as outpatient until hCG is negative. she verbalized understanding the risk of possibility of salpingectomy. Also understand risk of conversion to open procedure as well as risk of blood transfusion in case if necessary and she consents for blood transfusion as well. All questions were answered to the patient's best satisfaction We will keep the patient n.p.o. OR was notified Plan for above procedure at 10 PM per OR. Follow-up Plan in one week with Kiko Lei, her own [employer] FI[employer] SERVICE TECHNICIAN Primary Care Provider Not On Staff Doctor Time spent on discharge: > 30 minutes Pending Labs Laboratory Tests Test 11/27/16 14:50 11/27/16 15:25 Urine Color YELLOW (YELLOW) Urine Clarity SLIGHTLY CLOUDY (CLEAR) Urine pH 7.0 (5.0-9.0) Urine Specific Gibbon 1.015 (1.003-1.030) Urine Ketones NEGATIVEmg/dL (NEGATIVE) Urine Nitrite NEGATIVEmg/dL (NEGATIVE) Urine Bilirubin NEGATIVEmg/dL (NEGATIVE) Urine Urobilinogen NEGATIVEmg/dL (NEGATIVE) Urine Leukocyte Esterase NEGATIVELeu/ul (NEGATIVE) Urine Microscopic RBC 1/HPF (0-5) Urine Microscopic WBC 5/HPF (0-5) Urine Squamous Epithelial Cells FEW/HPF (FEW) Urine Mucus FEW/HPF (NONE SEEN) Urine Hemoglobin 2+mg/dL (NEGATIVE) Urine Glucose NEGATIVEmg/dL (NEGATIVE) Urine Total Protein 1+mg/dl (NEGATIVE) White Blood Count 11.410^3/ul (4.8-10.8) Red Blood Count 4.2210^6/ul (4.70-6.10) Hemoglobin 12.9g/dl (14.0-18.0) Hematocrit 37.2% (42.0-52.0) Mean Corpuscular Volume 88.2fl (82.0-101.0) Mean Corpuscular Hemoglobin 30.6pg (29.0-33.0) Mean Corpuscular Hemoglobin Concent 34.7g/dl (32.0-37.0) Red Cell Distribution Width 13.1% (11.5-14.5) Platelet Count 15386^3/UL (140-415) Mean Platelet Volume 11.0fl (7.4-10.4) Neutrophils % 83.5% (39.0-77.0) Lymphocytes % 11.6% (15.0-51.0) Monocytes % 3.9% (0.0-11.0) Eosinophils % 0.3% (0.0-7.0) Basophils % 0.2% (0.0-2.0) Nucleated Red Blood Cells % 0.0/100WBC (0.0-0.0) Neutrophils # 9.510^3/ul (1.6-7.5) Lymphocytes # 1.310^3/ul (0.8-2.9) Monocytes # 0.510^3/ul (0.3-0.9) Eosinophils # 0.010^3/ul (0.0-0.5) Basophils # 0.010^3/ul (0.0-0.1) Nucleated Red Blood Cells # 0.010^3/ul (0.0-0.0) Prothrombin Time 12.8Sec (12.2-14.2) Prothrombin Time Ratio 1.0 INR International Normalized Ratio 0.96 Activated Partial Thromboplast Time 23.8Sec (25.0-35.0) Sodium Level 140mmol/L (135-144) Potassium Level 4.3mmol/L (3.5-5.1) Chloride Level 106mmol/L (97-110) Carbon Dioxide Level 23mmol/L (21-31) Anion Gap 15 (8-16) Blood Urea Nitrogen 11mg/dl (7-20) Creatinine 0.61mg/dl (0.61-1.24) Glucose Level 102mg/dl (70-220) Calcium Level 9.3mg/dl (8.4-10.2) Total Bilirubin 0.6mg/dl (0.2-1.3) Direct Bilirubin 0.00mg/dl (0.00-0.20) Indirect Bilirubin 0.6mg/dl (0-1.1) Aspartate Amino Transf (AST/SGOT) 25IU/L (15-46) Alanine Aminotransferase (ALT/SGPT) 42IU/L (13-69) Alkaline Phosphatase 82IU/L (42-121) Total Protein 7.9g/dl (6.1-8.1) Albumin 4.5g/dl (3.3-4.9) Globulin 3.40g/dl (1.3-3.2) Albumin/Globulin Ratio 1.32 Beta HCG, Quantitative 91951.0mIU/ml GEM HERRON MD Nov 28, 2016 01:03
[2016-11-28] MEDS: LACTATED RINGER'S 1,000 ML IV SCH ×4 (02:16→14:07)
[2016-11-28] MEDS: IBUPROFEN 600 MG TAB PO PRN ×2 (08:33→16:36)
[2016-11-28 15:33] LABS: BASOPHILS % 0.1 % (0.0-2.0); HEMATOCRIT 26.3 % (37.0-47.0); HEMOGLOBIN 8.6 g/dl (12.0-16.0); LYMPHOCYTES # 1.3 10^3/ul (0.8-2.9); LYMPHOCYTES % 9.4 % (15.0-51.0); MEAN CORPUSCULAR HEMOGLOBIN 29.5 pg (29.0-33.0); MEAN CORPUSCULAR HGB CONC 32.7 g/dl (32.0-37.0); MEAN CORPUSCULAR VOLUME 90.1 fl (82.0-101.0); MEAN PLATELET VOLUME 11.4 fl (7.4-10.4); MONOCYTES % 7.1 % (0.0-11.0); NEUTROPHIL # 11.7 10^3/ul (1.6-7.5); NEUTROPHILS % 82.9 % (39.0-77.0); PLATELET COUNT 187 10^3/UL (140-415); RED BLOOD COUNT 2.92 10^6/ul (4.20-5.40); RED CELL DISTRIBUTION WIDTH 13.6 % (11.5-14.5); WHITE BLOOD COUNT 14.1 10^3/ul (4.8-10.8)
--- NOTE | 2016-11-28 22:06 | ERD ---
ER Documentation Chief Complaint Date/Time DATE: 11/28/16 TIME: 21:59 Chief Complaint abdominal pain x yesterday, 8 wks no vag bleed HPI Patient is a 36-year-old female who is , reportedly 8 weeks , last menstrual cycle of 09-28-2016 presenting to the emergency department with complaints of cramping, intermittent, suprapubic pain bilaterally which began last night suddenly. The pain is continued intermittently today. She denies vaginal bleeding. She has never had a confirmed IUP by ultrasound in the past for this . Her [employer] physician is Dr. Kiko Haddad at [facility]. She denies fevers, chills, or other symptoms currently. She has taken no medication for relief of symptoms. ROS All systems reviewed and are negative except as per history of present illness. Medications Home Meds No Active Prescriptions or Reported Meds Allergies Allergies: Coded Allergies: Iodinated Contrast- Oral and IV Dye (Verified Allergy, Unknown, facial redness and body itchiness, 11/27/16) Uncoded Allergies: ANTIBIOTIC UNK NAME (Allergy, Unknown, antbx for ear infection, facial and body itchiness, 11/27/16) PMhx/Soc Medical and Surgical Hx: pt denies Medical Hx, pt denies Surgical Hx History of Surgery: Yes (appy) Anesthesia Reaction: No Hx Neurological Disorder: No Hx Respiratory Disorders: No Hx Cardiac Disorders: No Hx Psychiatric Problems: No Hx Miscellaneous Medical Probl: No Hx Alcohol Use: No Hx Substance Use: No Hx Tobacco Use: No Smoking Status: Never smoker Physical Exam Vitals Vital Signs Date Time Temp Pulse Resp B/P Pulse Ox O2 Delivery O2 Flow Rate FiO2 11/27/16 20:21 75 16 124/75 99 Room Air 11/27/16 16:46 98.5 78 20 112/58 99 Room Air 11/27/16 12:22 97.9 113 20 114/78 99 Physical Exam Const: Nontoxic, well-appearing female in mild distress secondary to pain. Head: Atraumatic Eyes: Normal Conjunctiva ENT: Normal External Ears, Nose and Mouth. Neck: Full range of motion..~ No meningismus. Resp: Clear to auscultation bilaterally Cardio: Regular rate and rhythm, no murmurs Abd: Gravid abdomen, soft, tenderness to palpation of the suprapubic area bilaterally. Skin: No petechiae or rashes Back: No midline or flank tenderness. No CVA tenderness. Ext: No cyanosis, or edema Neur: Awake and alert Psych: Normal Mood and Affect Result Diagram: 11/28/16 1516 11/27/16 1525 Results 24 hrs Laboratory Tests Test 11/27/16 14:50 11/27/16 15:25 Urine Color YELLOW Urine Clarity SLIGHTLY CLOUDY Urine pH 7.0 Urine Specific [place] 1.015 Urine Ketones NEGATIVEmg/dL Urine Nitrite NEGATIVEmg/dL Urine Bilirubin NEGATIVEmg/dL Urine Urobilinogen NEGATIVEmg/dL Urine Leukocyte Esterase NEGATIVELeu/ul Urine Microscopic RBC 1/HPF Urine Microscopic WBC 5/HPF Urine Squamous Epithelial Cells FEW/HPF Urine Mucus FEW/HPF Urine Hemoglobin 2+mg/dL Urine Glucose NEGATIVEmg/dL Urine Total Protein 1+mg/dl White Blood Count 11.410^3/ul Red Blood Count 4.2210^6/ul Hemoglobin 12.9g/dl Hematocrit 37.2% Mean Corpuscular Volume 88.2fl Mean Corpuscular Hemoglobin 30.6pg Mean Corpuscular Hemoglobin Concent 34.7g/dl Red Cell Distribution Width 13.1% Platelet Count 73661^3/UL Mean Platelet Volume 11.0fl Neutrophils % 83.5% Lymphocytes % 11.6% Monocytes % 3.9% Eosinophils % 0.3% Basophils % 0.2% Nucleated Red Blood Cells % 0.0/100WBC Neutrophils # 9.510^3/ul Lymphocytes # 1.310^3/ul Monocytes # 0.510^3/ul Eosinophils # 0.010^3/ul Basophils # 0.010^3/ul Nucleated Red Blood Cells # 0.010^3/ul Prothrombin Time 12.8Sec Prothrombin Time Ratio 1.0 INR International Normalized Ratio 0.96 Activated Partial Thromboplast Time 23.8Sec Sodium Level 140mmol/L Potassium Level 4.3mmol/L Chloride Level 106mmol/L Carbon Dioxide Level 23mmol/L Anion Gap 15 Blood Urea Nitrogen 11mg/dl Creatinine 0.61mg/dl Glucose Level 102mg/dl Calcium Level 9.3mg/dl Total Bilirubin 0.6mg/dl Direct Bilirubin 0.00mg/dl Indirect Bilirubin 0.6mg/dl Aspartate Amino Transf (AST/SGOT) 25IU/L Alanine Aminotransferase (ALT/SGPT) 42IU/L Alkaline Phosphatase 82IU/L Total Protein 7.9g/dl Albumin 4.5g/dl Globulin 3.40g/dl Albumin/Globulin Ratio 1.32 Beta HCG, Quantitative 58489.0mIU/ml Current Medications Medications (Trade) Dose Ordered Sig/Benjamín Route PRN Reason Start Time Stop Time Status Last Admin Dose Admin Acetaminophen (Tylenol Tab) 650 mg ONCE STAT PO 11/27/16 13:44 11/27/16 13:45 DC 11/27/16 13:44 Acetaminophen/ Hydrocodone Bitart ([place] (5/325)) 1 tab ONCE ONCE PO 11/27/16 17:30 11/27/16 17:31 DC Ondansetron HCl 4 mg 4 mg ONCE STAT ODT 11/27/16 17:20 11/27/16 17:21 DC Lactated Ringer's 1,000 ml @ 125 mls/hr Q8H IV 11/27/16 18:16 11/28/16 20:41 DC 11/28/16 06:38 Cefazolin Sodium/ Dextrose (Ancef 2 Gm/50 ml (Pmx)) 50 ml @ 100 mls/hr PRE-OP ONCE IVPB 11/27/16 18:30 11/27/16 18:59 DC 11/27/16 19:00 Vasopressin (Pitressin) 20 unit STK-MED ONCE .ROUTE 11/27/16 20:15 11/27/16 20:16 DC Rocuronium [place] (Zemuron) 50 mg STK-MED ONCE .ROUTE 11/27/16 07:00 11/28/16 21:09 DC Procedures/MDM This is a pleasant 36-year-old female presenting to the emergency department with complaints of bilateral suprapubic pain which began suddenly last night. The patient is , last menstrual cycle of 09-28-2016. Patient was hemodynamically stable upon arrival to the emergency department and she stayed consistently stable throughout her ED course. CBC showed mild leukocytosis at 11.4. Mild anemia at 12.9, but not significant. The remainder of the CBC was normal. Chemistry panel is normal. Beta-hCG was 14,239. Urine was not concerning for urinary tract infection. Endo vaginal obstetrical ultrasound showed thickening of the endometrium without evidence of an intrauterine . Because there was high suspicion for ectopic after workup in the department, I contacted on-call [employer], Dr. Mery Zuleta, who came right away to evaluate the patient bedside. She discussed options for the patient's, risks, benefits, and the patient consented to have surgical procedure performed. The patient was admitted under Dr. Mery Zuleta, and the patient signed a consent form for surgery. Care was turned over to Dr. Mery Zuleta approximately 1800 on 11/27/16. PROCEDURE: OBSTETRICAL ULTRASOUND WITH ENDOVAGINAL IMAGES CLINICAL INDICATION: Vaginal bleeding, pelvic pain TECHNIQUE: Multiple sonographic images of the pelvis were obtained utilizing a transabdominal and endovaginal technique. The images were reviewed on a PACS workstation. COMPARISON: None. LMP: 09/28/2016 Gestational age by LMP: 8 weeks, 4 days FINDINGS: The uterus measures 8.3 x 4.6 x 7.8 cm. There is heterogeneity and thickening of the endometrium which measures up to 16 mm. No abnormal vascularity is identified in the endometrium. Several sub-centimeter Nabothian cysts are identified. The right ovary is not visualized. The left ovary measures 2.8 x 2.0 x 2.0 cm. There is normal vascular flow in the left ovary. No significant ovarian lesions are seen. There is mild free fluid in the left adnexa. IMPRESSION: There is heterogeneity and thickening of the endometrium to 16 mm without evidence of an intrauterine . Findings may be due to an early intrauterine although an ectopic and early demise cannot be entirely excluded. Short-term follow-up ultrasound and serial Beta HCG measurements are recommended for further evaluation. No abnormal vascularity is identified in the endometrium to suggest retained products of conception. Mild free fluid is identified in the left adnexa without evidence of a significant left ovarian lesion. Nonvisualization of the right ovary. RPTAT: EE Physician Jamila Date Time Electronically viewed and signed by Lokesh Cardona Physician on 11/27/2016 15:02 Departure Diagnosis: Primary Impression: Ectopic Location of ectopic : unspecified location Intrauterine status: without intrauterine Qualified Code: O00.90 - Ectopic without intrauterine , unspecified location Condition: Fair Patient Instructions: After Laparoscopic Treatment of Ectopic HERBERT LARA PA-C Nov 28, 2016 22:06
== END 2016-11-28 20:30 | disposition home or self-care (01) ==
LOC: FTE 11:59 → SDS 20:23 → MS1 11-28 02:37 → UNDOADMOB 11-28 02:37 → MS1 11-28 02:37 → EDSEX 11-28 02:37 → UNDOADMOB 11-28 02:58 → MS1 11-28 02:58 → SDS 11-28 20:30
PROVIDERS: ATTEND Surgery
DX: O00.10 Tubal pregnancy without intrauterine pregnancy (principal); K66.1 Hemoperitoneum; E78.00 Pure hypercholesterolemia, unspecified; E03.9 Hypothyroidism, unspecified; Z82.49 Family history of ischemic heart disease and other diseases of the circulatory system
CPT/HCPCS: 58120; 59151; 76801; 76817; 80053; 81001; 84702; 85025; 85610; 85730; 86885; 86900; 86901; 88305; 88331; 96361; 96374; J0690; J1100; J1170; J2175; J2250; J2370; J2405; J2795; J3010; J7120; Z7502; Z7512; Z7610; J7999